=== PATIENT | female | born 1980 | race Caucasian/White ===

== ENCOUNTER → 2023-10-15 14:09 | Outpatient (REF) | payer OTHER, SELFPAY | LOC: HWWDC 14:09 | PROVIDERS: ATTENDING PHYSICIAN Physician Assistant Medical | DX: Z12.31 Encounter for screening mammogram for malignant neoplasm of breast (principal) | CPT/HCPCS: 77063; 77067 ==

== ENCOUNTER 2024-04-16 06:28 | Day surgery (SDC) | payer OTHER, SELFPAY | END 2024-04-16 13:28 | disposition home or self-care (01) | LOC: GI 06:28 | PROVIDERS: ATTENDING PHYSICIAN Internal Medicine Gastroenterology | DX: K57.30 Diverticulosis of large intestine without perforation or abscess without bleeding (principal); K64.8 Other hemorrhoids; R19.4 Change in bowel habit; K59.00 Constipation, unspecified | CPT/HCPCS: 45378 ==

== ENCOUNTER → 2024-10-15 11:00 | Outpatient (REF) | payer OTHER, SELFPAY | LOC: HWWDC 11:00 | PROVIDERS: ATTENDING PHYSICIAN Family Medicine; REFERRING PHYSICIAN Obstetrics & Gynecology | DX: Z12.31 Encounter for screening mammogram for malignant neoplasm of breast (principal) | CPT/HCPCS: 77063; 77067 ==